=== PATIENT | female | born 1975 | race Caucasian/White ===

== ENCOUNTER → 2016-07-29 | Outpatient (CLI) | payer BC ==
[~2016-07-29] MED LIST: IBUP-232 PO; MEDR4PAK PO; TRAM50TA PO
[2016-07-29 12:06] LABS: AUTOMATED NEUTROPHIL # 5.2 TH/MM3 (1.8-7.7); BASOPHIL # 0.1 TH/MM3 (0-0.2); BASOPHIL % 0.9 % (0.0-2.0); EOSINOPHIL # 0.3 TH/MM3 (0-0.4); HEMATOCRIT 42.5 % (35.0-46.0); HEMO FLAGS DIFF FINAL; LYMPHOCYTE # 2.2 TH/MM3 (1.0-4.8); MEAN CELL VOLUME 89.5 FL (80.0-100.0); MEAN CORPUSCULAR HEMOGLOBIN 30.3 PG (27.0-34.0); MEAN CORPUSCULAR HGB CONC 33.8 % (32.0-36.0); MONO % 8.5 % (0.0-8.0); NEUT % 60.6 % (16.0-70.0); PLATELET COUNT 190 TH/MM3 (150-450); RED BLOOD COUNT 4.75 MIL/MM3 (4.00-5.30); RED CELL DISTRIBUTION WIDTH 12.7 % (11.6-17.2); WHITE BLOOD COUNT 8.6 TH/MM3 (4.0-11.0)
[2016-07-29 12:15] LABS: APTT (PATIENT) 28.3 SEC (24.3-30.1); INTERNATIONAL NORMALIZED RATIO 0.9 RATIO; PROTHROMBIN TIME - PATIENT 10.4 SEC (9.8-11.6)
--- NOTE | 2016-07-29 12:38 | RADRPT ---
EXAM DATE/TIME: 07/29/2016 11:45 [place] COMPARISON: No previous studies available for comparison. INDICATIONS : Evaluate for pneumonia, pneumothorax, or communicable disease. Pre-op for surgery on 08-03-16. MEDICAL HISTORY : None. SURGICAL HISTORY : None. ENCOUNTER: Initial ACUITY: 2 days PAIN SCORE: 0/10 LOCATION: Bilateral chest FINDINGS: PA and lateral views of the chest demonstrate the lungs to be symmetrically aerated without evidence of mass, infiltrate or effusion. The cardiomediastinal contours are unremarkable. Osseous structure s are intact. CONCLUSION: 1. No acute cardiopulmonary findings. Adriel Padilla MD on July 29, 2016 at 12:36 Board Certified Radiologist. This report was verified electronically.
[2016-07-29 12:41] LABS: ANION GAP 7 MEQ/L (5-15); AST (GOT) 6 U/L (15-37); BICARBONATE 25.7 MEQ/L (21.0-32.0); BLOOD UREA NITROGEN 13 MG/DL (7-18); CHLORIDE 106 MEQ/L (98-107); GLOMERULAR FILTRATION RATE 68 ML/MIN (>89); GLUCOSE,FASTING 83 MG/DL (74-99); POTASSIUM 4.1 MEQ/L (3.5-5.1); SODIUM (NA) 139 MEQ/L (136-145)
[2016-07-29 12:46] LABS: ALKALINE PHOSPHATASE 34 U/L (45-117); ALT (GPT) 17 U/L (10-53); TOTAL BILIRUBIN ADULT 0.4 MG/DL (0.2-1.0)
[2016-07-29 12:55] LABS: BHCG SCREEN QUALITATIVE LESS THAN 1 MIU/ML (0-5)
--- NOTE | 2016-07-30 18:01 | EKG ---
Date Performed: 07/29/2016 Time Performed: 11:13:50 PTAGE: 41 years EKG: Sinus rhythm POSSIBLE RIGHT VENTRICULAR CONDUCTION DELAY BORDERLINE ECG NO PREVIOUS TRACING DOCTOR: Mae Brerios Interpretating Date/Time 07/30/2016 17:59:07
== END ==
LOC: CPRE 10:55
PROVIDERS: ATTEND Obstetrics & Gynecology Gynecologic Oncology
DX: Z01.810 Encounter for preprocedural cardiovascular examination (principal); Z01.811 Encounter for preprocedural respiratory examination; Z01.812 Encounter for preprocedural laboratory examination; N87.9 Dysplasia of cervix uteri, unspecified; R94.31 Abnormal electrocardiogram [ECG] [EKG]
CPT/HCPCS: 36415; 71020; 80053; 84703; 85025; 85610; 85730; 93005

== ENCOUNTER → 2016-08-03 | Day surgery (SDC) | payer BC ==
[~2016-08-03] VITALS: Ht 172.7 cm; Wt 76.2 kg
[~2016-08-03] MED LIST changes: +*RESP: ALBUTEROL 2.5 MG/3 ML NEB (PRN) PERIprocedural Use ONLY NEB ONE; +ACETAMINOPHEN 1000 MG/100 ML VIAL IV ONE; +CEPH500C PO; +CHLORHEXIDINE GLUCONATE 2 % 1 PACK (2 CLOTHS) TOPICAL PRN; +CLIN1CAP5 PO; +DEXAMETHASONE SOD PHOS 4 MG/ML VIAL ONE; +DICLOFENAC SODIUM 37.5 MG/ML VIAL IV PUSH ONE; +DO NOT ADM ANY ANTICOAGULANT DRUGS PRN; +FAMOTIDINE 20 MG/2 ML VIAL ONE; +FERRIC SUBSULFATE 8 ML TOP SOLN ONE; +INSULIN HUMAN REGULAR 1,000 UNITS/10 ML VIAL SQ PRN; +KETOROLAC TROMETHAMINE 30 MG/ML (IVP) VIAL IV PUSH SCH; +KETOROLAC TROMETHAMINE 30 MG/ML (IVP) VIAL ONE; +LACTATED RINGER'S 1000 ML IV PRN; +LIDOCAINE 2%/EPINEPHrine 1:100,000 30ML MDV ONE; +LIDOCAINE HCL 1% 50 ML VIAL ONE; +METOPROLOL TARTRATE 25 MG TAB PO PRN; +MIDAZOLAM HCL 2 MG/2 ML VIAL ONE; +ONDANSETRON HCL 4 MG/2 ML VIAL IV PUSH ONE; +POVIDONE IODINE 5% (ANTISEPSIS KIT) 4 APPLICATIONS EACH NARE PRN; +PROPOFOL 200 MG/20 ML AMP IV ONE; +PROV10TA PO; +SILVER NITR/POTASSIUM NITRATE APPLICATORS ONE; +SODIUM CHLORID 0.9% 500 ML IV PRN; +ePHEDrine/NS 25 MG/5 ML SYR IV ONE; +fentaNYL CITRATE 250 MCG/5 ML AMP ONE; +oxyCODONE/ACETAMINOPHEN 5 MG/325 MG TAB PO PRN
[2016-08-03 12:13] VITALS: BP 99/52; PULSE 63; RESP 18; TEMP 97.7; O2SAT 98
[2016-08-03 17:01] VITALS: BP 103/52; PULSE 61; RESP 16; TEMP 97.6; O2SAT 100
--- NOTE | 2016-08-04 07:23 | MP ---
cc: DR. ABRAN WOOD KELLY L. MD TAWWAB, SHAKEELA MD DATE OF PROCEDURE 08/03/2016 PREOPERATIVE DIAGNOSIS Cervical carcinoma in situ. POSTOPERATIVE DIAGNOSIS Cervical carcinoma in situ. PROCEDURE Examination under anesthesia, biopsies of the cervix, conization of the cervix, fractional dilation and curettage. SURGEON Tara Rudolph MD OPERATIONS TECHNICIAN [place] first cook. ANESTHESIA Laryngeal mask anesthesia. ESTIMATED BLOOD LOSS 50 cc. HISTORY A 41-year-old female with abnormal Pap smear, irregular bleeding. Biopsy showed carcinoma in situ. She has been counseled regarding these findings and the need for further information and presents now for surgical evaluation. She is seen again in the preop holding area where we have again reviewed the findings in her case. The recommendations is for examination under anesthesia, biopsies, possible cone biopsy and curetting of the cervix and endometrium to have a better understanding of the extent of the problem and to evaluate the presence or absence of cancer. She expresses good understanding and agrees to move forward. FINDINGS On exam under anesthesia there is no appreciably enlarged inguinal lymph nodes. External genitalia with mass or lesion. The cervix is quite prominent, 3-4 cm in greatest dimension. There is asymmetry. There is a prominence on the anterior lip that may be a Nabothian cyst, possibly an old obstetric injury with asymmetric healing. There is also a prominent transformation zone with friable tissue that extends well out onto the ectocervix circumferentially. The uterine cavity sounds to 8 cm, slightly retroverted. There is no overt parametrial nodularity or thickening. The cervix and uterus are quite mobile. There is no retraction or distortion. There is no overt adnexal mass or posterior nodularity in the cul-de-sac. Frozen section of multifocal biopsies of the cervix showed carcinoma in situ, but did not confirm invasive disease as the clinical exam suggested the possibility of invasive disease but this was not confirmed on biopsies which led to the decision to move forward with cone biopsy. PROCEDURE The patient was taken to the operating room, placed in dorsal lithotomy position. After laryngeal mask anesthesia was administered, a time-out was undertaken. The patient was identified by sight recognition and hospital ID bracelet and the proposed procedure was reviewed and confirmed. She was carefully positioned in lithotomy position. Exam under anesthesia was performed with findings as described above. She was prepped and draped in sterile fashion. Cervix biopsies were obtained. Ray-Jenny packing was placed in the vagina to assist in hemostasis. Biopsies were sent to pathologist with the clinical expectation that this might represent invasive cancer. However, as described above, showed carcinoma in situ, but did not confirm invasive cancer. Therefore steps were taken to move forward with the conization. 0 Vicryl sutures were placed in the lateral cervix at the 9 o'clock and 3 o'clock position in a [id number] fashion to assist in countertraction and hemostasis. Lidocaine epinephrine was injected circumferentially into the cervix. The axis of the cervical canal was identified with a uterine sound. Scalpel was used to take a wide conization around the margin of the abnormal-appearing transformation zone and to angle that in toward the endocervical canal with sharp dissection to complete the conization and that specimen was removed as cervix conization to be sent for routine histopathologic analysis. Endocervical sampling was then performed, multiple passes circumferentially. The tissue was combined, labeled as endocervical curetting and then the endocervix was dilated and endometrial curetting was performed, multiple passes circumferentially and this tissue was labeled as endometrial curettings. There was a mild to moderate amount of tissue from both the endocervix and the endometrium. The cone bed was cauterized circumferentially and topical Monsel's solution was applied. There was complete hemostasis. Inspection confirmed there were no remaining foreign objects in the vagina. Preliminary and final counts were correct. She was returned to dorsal supine position and was pending reversal of anesthesia when I left the operating room to precede her to the Post-Anesthesia Care Unit. MD JULES Albert/BRIGIDA /4:02 PM /6:59 AM
== END | disposition home or self-care (01) ==
LOC: HSDC 11:17
PROVIDERS: ATTEND Obstetrics & Gynecology Gynecologic Oncology
DX: C53.9 Malignant neoplasm of cervix uteri, unspecified (principal)
CPT/HCPCS: 00940; 57520; 86850; 86900; 86901; 88305; 88307; 88331; 94664; J0131; J1100; J1130; J1885; J2250; J2405; J3010; J7120; J7613

== ENCOUNTER 2016-09-30 05:07 | Observation (INO) | payer BC ==
[~2016-09-30] VITALS: Ht 172.7 cm; Wt 79.6 kg
[~2016-09-30 05:07] MED LIST changes: -*RESP: ALBUTEROL 2.5 MG/3 ML NEB (PRN) PERIprocedural Use ONLY NEB ONE; -ACETAMINOPHEN 1000 MG/100 ML VIAL IV ONE; -CEPH500C PO; -CHLORHEXIDINE GLUCONATE 2 % 1 PACK (2 CLOTHS) TOPICAL PRN; -CLIN1CAP5 PO; -DEXAMETHASONE SOD PHOS 4 MG/ML VIAL ONE; -DICLOFENAC SODIUM 37.5 MG/ML VIAL IV PUSH ONE; -DO NOT ADM ANY ANTICOAGULANT DRUGS PRN; -FAMOTIDINE 20 MG/2 ML VIAL ONE; -FERRIC SUBSULFATE 8 ML TOP SOLN ONE; -IBUP-232 PO; -INSULIN HUMAN REGULAR 1,000 UNITS/10 ML VIAL SQ PRN; -KETOROLAC TROMETHAMINE 30 MG/ML (IVP) VIAL IV PUSH SCH; -KETOROLAC TROMETHAMINE 30 MG/ML (IVP) VIAL ONE; -LACTATED RINGER'S 1000 ML IV PRN; -LIDOCAINE 2%/EPINEPHrine 1:100,000 30ML MDV ONE; -LIDOCAINE HCL 1% 50 ML VIAL ONE; -MEDR4PAK PO; -METOPROLOL TARTRATE 25 MG TAB PO PRN; -MIDAZOLAM HCL 2 MG/2 ML VIAL ONE; -ONDANSETRON HCL 4 MG/2 ML VIAL IV PUSH ONE; +OXYC1TAB63 PO; -POVIDONE IODINE 5% (ANTISEPSIS KIT) 4 APPLICATIONS EACH NARE PRN; -PROPOFOL 200 MG/20 ML AMP IV ONE; -PROV10TA PO; -SILVER NITR/POTASSIUM NITRATE APPLICATORS ONE; -SODIUM CHLORID 0.9% 500 ML IV PRN; -TRAM50TA PO; -ePHEDrine/NS 25 MG/5 ML SYR IV ONE; -fentaNYL CITRATE 250 MCG/5 ML AMP ONE; -oxyCODONE/ACETAMINOPHEN 5 MG/325 MG TAB PO PRN
[2016-09-30] MEDS ORDERED: ceFAZolin 1,000 MG/NS 100 ML IV SCH ×2 (05:45)
[2016-09-30] MEDS ORDERED: HEPARIN SODIUM - SQ 10,000 UNITS/ML VIAL SQ SCH (05:45)
[2016-09-30] MEDS ORDERED: SODIUM CHLORIDE FLUSH PRN IV FLUSH (05:45)
[2016-09-30] MEDS ORDERED: INSULIN HUMAN REGULAR 1,000 UNITS/10 ML VIAL SQ PRN (06:00)
[2016-09-30] MEDS ORDERED: SODIUM CHLORID 0.9% 500 ML IV PRN (06:00)
[2016-09-30] MEDS ORDERED: POVIDONE IODINE 5% (ANTISEPSIS KIT) 4 APPLICATIONS EACH NARE PRN (06:00)
[2016-09-30] MEDS ORDERED: METOPROLOL TARTRATE 25 MG TAB PO PRN (06:00)
[2016-09-30] MEDS ORDERED: CHLORHEXIDINE GLUCONATE 2 % 1 PACK (2 CLOTHS) TOPICAL PRN (06:00)
[2016-09-30] MEDS ORDERED: LACTATED RINGER'S 1000 ML IV PRN (06:00)
[2016-09-30 06:17] VITALS: BP 100/58; PULSE 62; RESP 20; TEMP 98.7; O2SAT 100
[2016-09-30] MEDS ORDERED: ACETAMINOPHEN 1000 MG/100 ML VIAL IV ONE (06:18)
[2016-09-30] MEDS ORDERED: SUGAMMADEX SODIUM 200 MG/2 ML VIAL IV PUSH ONE ×2 (06:18)
[2016-09-30] MEDS ORDERED: LIDOCAINE 1%/EPINEPHrine 1:100,000 SOLN 20 ML VIAL ONE (06:25)
[2016-09-30] MEDS ORDERED: ARTIFICIAL TEARS OPTH OINT 3.5 APPLIC/3.5 GM TUBO ONE (06:53)
[2016-09-30] MEDS ORDERED: MIDAZOLAM HCL 2 MG/2 ML VIAL ONE (06:53)
[2016-09-30] MEDS ORDERED: HYDROmorphone HCL PF 2 MG/ML VIAL ONE (06:54)
[2016-09-30] MEDS ORDERED: FAMOTIDINE 20 MG/2 ML VIAL ONE (06:54)
[2016-09-30] MEDS ORDERED: SODIUM CHLORIDE FLUSH BID IV FLUSH SCH (09:00)
[2016-09-30] MEDS ORDERED: SODIUM CHLORIDE 0.9% FLUSH 10 ML FLUSH IV FLUSH PRN (10:00)
[2016-09-30] MEDS ORDERED: LORazepam 0.5 MG TAB PO PRN (10:00)
[2016-09-30] MEDS ORDERED: ONDANSETRON HCL 4 MG/2 ML VIAL IVP PRN (10:00)
[2016-09-30] MEDS ORDERED: diphenhydrAMINE HCL 25 MG CAP PO PRN (10:00)
[2016-09-30] MEDS ORDERED: oxyCODONE/ACETAMINOPHEN 5 MG/325 MG TAB PO PRN (10:00)
[2016-09-30] MEDS ORDERED: HYDROmorphone HCL PF 1 MG/ML VIAL IVP PRN (10:00)
[2016-09-30] MEDS ORDERED: DO NOT ADM ANY ANTICOAGULANT DRUGS PRN (10:23)
[2016-09-30] MEDS ORDERED: fentaNYL CITRATE 250 MCG/5 ML AMP ONE (10:30)
[2016-09-30] MEDS ORDERED: *MEPERIDINE 25 MG INJ VIAL PERIprocedural Use ONLY ONE (10:35)
[2016-09-30] MEDS ORDERED: *morphine SULFATE 8 MG/ML PERIprocedure ONLY ONE ×2 (10:52→11:00)
[2016-09-30] MEDS: D5-1/2 NS + KCL 20 MEQ INJ 1,000 ML IV SCH ×2 (10:55→21:19)
[2016-09-30] MEDS ORDERED: *diphenhydrAMINE HCL 50 MG/ML VIAL PERIprocedural Use ONLY ONE (12:18)
[2016-09-30] MEDS: KETOROLAC TROMETHAMINE 30 MG/ML (IVP) VIAL IVP SCH ×3 (12:27→22:53)
[2016-09-30] MEDS ORDERED: PROPOFOL 200 MG/20 ML AMP IV ONE (12:52)
[2016-09-30] MEDS ORDERED: ePHEDrine/NS 25 MG/5 ML SYR IV ONE (12:52)
[2016-09-30] MEDS ORDERED: ONDANSETRON HCL 4 MG/2 ML VIAL IV PUSH ONE (12:53)
[2016-09-30] MEDS ORDERED: KETOROLAC TROMETHAMINE 60 MG/2 ML (IM) VIAL IM ONE (12:53)
[2016-09-30] MEDS ORDERED: NORMOSOL R INJ 1,000 ML IV ONE (12:53)
[2016-09-30 16:00] VITALS: BP 103/67; PULSE 67; RESP 19; TEMP 96.4; O2SAT 98
[2016-09-30] MEDS: oxyCODONE/ACETAMINOPHEN 5 MG/325 MG TAB PO PRN ×2 (17:13→21:19)
[2016-09-30 20:00] VITALS: BP 95/52; PULSE 65; RESP 16; TEMP 98.6; O2SAT 96
[2016-09-30] MEDS: SODIUM CHLORIDE 0.9% FLUSH 10 ML FLUSH IV FLUSH SCH (20:30)
[2016-10-01] VITALS: BP 128/55; PULSE 56; RESP 16; TEMP 98.8; O2SAT 94
[2016-10-01] MEDS: D5-1/2 NS + KCL 20 MEQ INJ 1,000 ML IV SCH (03:58)
[2016-10-01] MEDS: oxyCODONE/ACETAMINOPHEN 5 MG/325 MG TAB PO PRN (03:58)
[2016-10-01 04:00] VITALS: BP 117/55; PULSE 53; RESP 16; TEMP 97; O2SAT 96
[2016-10-01] MEDS: KETOROLAC TROMETHAMINE 30 MG/ML (IVP) VIAL IVP SCH (04:00)
[2016-10-01] MEDS ORDERED: OXYC1TAB63 PO (07:06)
[2016-10-01 08:00] VITALS: BP 127/64; PULSE 69; RESP 16; TEMP 98.5; O2SAT 96
[2016-10-01 09:51] LABS: AUTOMATED NEUTROPHIL # 10.5 TH/MM3 (1.8-7.7); BASOPHIL # 0.1 TH/MM3 (0-0.2); BASOPHIL % 0.4 % (0.0-2.0); EOSINOPHIL # 0.1 TH/MM3 (0-0.4); EOSINOPHIL % 0.5 % (0.0-4.0); HEMO FLAGS DIFF FINAL; LYMPH % 14.1 % (9.0-44.0); LYMPHOCYTE # 1.9 TH/MM3 (1.0-4.8); MEAN CELL VOLUME 89.2 FL (80.0-100.0); MEAN CORPUSCULAR HEMOGLOBIN 30.7 PG (27.0-34.0); MEAN CORPUSCULAR HGB CONC 34.4 % (32.0-36.0); PLATELET COUNT 164 TH/MM3 (150-450); RED CELL DISTRIBUTION WIDTH 12.7 % (11.6-17.2); WHITE BLOOD COUNT 13.3 TH/MM3 (4.0-11.0)
[2016-10-01 10:17] LABS: BICARBONATE 23.1 MEQ/L (21.0-32.0); POTASSIUM 3.5 MEQ/L (3.5-5.1)
[2016-10-01] MEDS: SODIUM CHLORIDE 0.9% FLUSH 10 ML FLUSH IV FLUSH SCH (12:05)
--- NOTE | 2016-10-01 23:20 | MP ---
cc: JOSIAS WOOD KELLY L. MD TAWWAB, SHAKEELA MD DATE OF SURGERY 09/30/2016 PREOPERATIVE DIAGNOSIS Cervical carcinoma in situ. Left ovarian complex mass POSTOPERATIVE DIAGNOSIS Cervical carcinoma in situ. Left ovarian complex mass PROCEDURE Robotic-assisted laparoscopic hysterectomy, left salpingo-oophorectomy, right salpingectomy, right oophoropexy. SURGEON Tara Rudolph MD MOLD SHOP SUPERVISOR [place] head start assistant teacher ANESTHESIA General endotracheal anesthesia. ESTIMATED BLOOD LOSS 50 cc. IV FLUIDS 1500 cc. URINE OUTPUT 25 cc. HISTORY A 41-year-old female with extensive cervical carcinoma in situ. No evidence of invasive disease, counseled regarding options. She is in favor of definitive surgical management. She is seen and counseled again in the preop holding area. She is concerned about the persistent complex cystic structure on the left ovary and requested that be removed. She is apprehensive about possibility of cancer and states there is family history of cancer. We discussed the average age of menopause again being approximately 51 and [age] years plus or minus. She is only 41. If we took out both ovaries it would shift her to menopause, such that her preference is we preserve the normal-appearing ovary in an effort to avoid menopause but if there is any concern about the appearance of that ovary she also agrees to complete hysterectomy with bilateral salpingo-oophorectomy. FINDINGS Uterine cavity sounds to 8 cm. Uterus is slightly prominent with changes suggestive of leiomyomas, possible adenomyosis. The right tube and ovary grossly appear normal. The left ovary is moderately enlarged to 4, perhaps 5 cm, mostly smooth-walled cyst, but with some subtle complexities, minimal adhesions against left pelvic sidewall. There is no pelvic or para-aortic adenopathy. No peritoneal implants. No evidence to suggest invasive disease. PROCEDURE She has taken to the operating room, placed in dorsal lithotomy position after general endotracheal anesthesia was administered, a time-out was undertaken. She was identified by sight recognition and hospital ID bracelet and the proposed procedure was reviewed and confirmed. She was carefully positioned in padded Diego stirrups. Her arms padded and secured to the sides. She was further secured to the operating table with egg crate padding and tape in across chest over the shoulder fashion. All sites noted be properly aligned with no malalignments or pressure points. She was prepped and draped sterile fashion, placed in lithotomy position. Cervix grasped, uterine cavity sounded, cervix dilated and a large VCare manipulator was inserted and secured in usual fashion. Blandon catheter placed in the bladder. She was returned to low lithotomy position. Change of sterile gloves was undertaken, confirmed that an orogastric tube is in the stomach on suction with manual elevation of the abdominal wall. 5 mm cannula was placed in the left upper quadrant with direct visualization and atraumatic entry was confirmed. Carbon dioxide gas was insufflated. Laparoscopic visualization a 12-mm cannula was placed in the midline above the umbilicus 8 mm cannula placed in the right upper quadrant, left lateral quadrant and the original 5 was exchanged for an 8-mm cannula. She was placed in Trendelenburg position. Anatomy was surveyed with findings as described above. The small bowel folded back on its mesenteric root, three Ray-Jenny sponges were placed around the root of the small bowel mesentery. Robotic system brought into the operative field and attached in the usual fashion. Monopolar scissors, fenestrated bipolar forceps and ProGrasp manipulators placed in arms number 1, 2 and 3 respectively and I took my place at the surgeon's console. Right round ligament isolated, cauterized, transected. The right peritoneum was opened along the posterior edge of the right side of the uterus and cervix. A window was made in the peritoneum below the utero-ovarian ligament and the utero-ovarian ligament was cauterized. The fallopian tube in an effort to reduce cancer risk was removed from the ovary with focal cautery and sharp dissection and left attached to the uterus at the fundus and then the remaining utero-ovarian ligament was transected thereby preserving the right ovary. Right vesicouterine peritoneum dissected off the lower uterine segment and cervix. The right uterine vessels were skeletonized and cauterized. Attention was directed toward the left side. Adhesions were taken down, sharp dissection to mobilize the colon, gain access to the retroperitoneum. The left round ligament was isolated, cauterized and transected. The left ureter was identified. The left infundibulopelvic ligament was isolated to the level of the pelvic brim where it was cauterized and transected. The posterior peritoneum was opened on the left side of the uterus and cervix. The left vesicouterine peritoneum was dissected off the lower uterine segment and cervix. The left uterine vessels were skeletonized, cauterized and transected as were the cardinal paracervical and uterosacral ligaments. Now, the right uterine vessels were transected in the cardinal, paracervical and uterosacral ligaments on the right were isolated, cauterized and transected in a stepwise fashion. Colpotomy was performed the cervix from the upper vagina. Specimen was withdrawn transvaginally which included uterus, cervix, left tube and ovary and right fallopian tube. A pneumooccluder balloon was placed in the vagina to maintain pneumoperitoneum. Instruments 1 and 3 exchanged for a needle local company intermodal truck driver as a 0 Vicryl suture was introduced. The vaginal cuff was closed starting at the left corner. Full-thickness closure through the tissue including the posterior peritoneum and edge of the uterosacral ligament tied via instrument tie and held on counter traction as a running continuous full-thickness closure was carried across the vaginal cuff to the contralateral corner where it was similarly fixed, secured tied via instrument tie. The needle was cut and removed. Another 0 Vicryl suture was introduced. The right ovary was pexed to the right round ligament remnant by [id number] suture between the round ligament and the utero-ovarian ligament and tied securely and then the intervening peritoneal space was reapproximated with running suture, tied, the needle was cut and removed. The pelvis was thoroughly irrigated. Inspection confirmed all sites to be hemostatic. Good margin between the vaginal cuff suture line and the bladder. Good peristalsis of the ureters and the ovary was fixed in place without torsion or traction on the blood supply. The instruments were removed. The robotic system was disengaged from the operative field and I reentered the bedside under sterile condition. Each of the three Ray-Jenny sponges were removed laparoscopically through the 12-mm cannula. Each were inspected and noted to be removed in their entirety. Visual inspection confirmed no remaining foreign objects in the peritoneal cavity. Preliminary counts were correct and the 12 mm defect was closed with interrupted 0 Vicryl sutures using a needle pass apparatus, under laparoscopic visualization, they were tied securely which rendered the fascia completely airtight and hemostatic. Remaining cannulas were withdrawn. Carbon dioxide gas was removed. 3-0 Vicryl subcutaneous, 3-0 Vicryl subcuticular and Steri-Strips used to close these incisions. She was returned to dorsal lithotomy position. Exam confirmed the vaginal cuff to be well supported, completely hemostatic. No vaginal lacerations. No remaining foreign objects in the vagina and final counts were correct. She was returned to dorsal supine position and was pending reversal of anesthesia when I left the operating room to precede her to the Post Anesthesia Care Unit. MD JULES Albert/OFE /10:35 AM /10:53 PM [id number]
--- NOTE | 2016-10-05 20:39 | MD ---
cc: NAYELI RUDOLPH MD,JOSIAS FLETCHER MD ADMISSION DATE: 09/30/2016 DISCHARGE DATE: 10/01/2016 PROCEDURE 09/30/16, robotic-assisted laparoscopic hysterectomy, left salpingo-oophorectomy, right salpingectomy, right oophoropexy. DIAGNOSIS Cervical carcinoma in situ, complex left ovarian cyst. HOSPITAL COURSE Did well during early postoperative period. Hemodynamically stable and adequate pain control, tolerating oral intake. Blandon catheter removed pending voiding. Ins and outs 3300/1475. Labs pending. PHYSICAL EXAMINATION VITAL SIGNS: Afebrile, pulse 56 to 67, respirations 16-19, blood pressure 95-128 over 52-67, O2 saturations greater than or equal to 96% while awake. GENERAL: She is alert, oriented x3. LUNGS: Lungs are clear. CARDIOVASCULAR: Regular rate and rhythm. ABDOMEN: Soft. Incisions clean and dry. 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 EXTREMITIES: Nontender. ASSESSMENT Postop day #1 doing well in early postoperative period. FINDINGS Steps taken at surgery reviewed, activities restrictions discussed. Questions were asked and answered. She expressed good understanding and agreed. PLAN If this patient will meet criteria for discharge to home. She will have a prescription for Percocet for pain. Otherwise, she takes no medication. She is to contact our office to schedule follow up in 2 weeks or to contact us at any time should she have questions or problems. Nayeli Rudolph MD KM/OFE /7:07 AM /8:24 PM
== END 2016-10-01 11:00 | disposition home or self-care (01) ==
LOC: HSDC 05:07 → HSDI 10:04 → HOCA 15:54
PROVIDERS: ADMIT Obstetrics & Gynecology Gynecologic Oncology; ATTEND Obstetrics & Gynecology Gynecologic Oncology
PROC: 0UTC7ZZ Resection of Cervix, Via Natural or Artificial Opening (ICD-10-PCS; 2016-09-30)
PROC: 0UT2FZZ Resection of Bilateral Ovaries, Via Natural or Artificial Opening With Percutaneous Endoscopic Assistance (ICD-10-PCS; 2016-09-30)
PROC: 0UT7FZZ Resection of Bilateral Fallopian Tubes, Via Natural or Artificial Opening With Percutaneous Endoscopic Assistance (ICD-10-PCS; 2016-09-30)
PROC: 8E0W8CZ Robotic Assisted Procedure of Trunk Region, Via Natural or Artificial Opening Endoscopic (ICD-10-PCS; 2016-09-30)
PROC: 0UT9FZZ Resection of Uterus, Via Natural or Artificial Opening With Percutaneous Endoscopic Assistance (ICD-10-PCS; principal; 2016-09-30 07:08)
DX: D06.9 Carcinoma in situ of cervix, unspecified (principal); N83.202 Unspecified ovarian cyst, left side; E78.5 Hyperlipidemia, unspecified; F17.200 Nicotine dependence, unspecified, uncomplicated
CPT/HCPCS: 00840; 58552; 80048; 85025; 86850; 86900; 86901; 88309; 96361; 96374; 96376; G0378; J0131; J0690; J1170; J1200; J1644; J1885; J2175; J2250; J2270; J2405; J3010; J3480; J7120; S2900; 88307